=== PATIENT | female | born 1980 | race American Indian/Alaskan Native ===

== ENCOUNTER 2016-12-20 08:12 | Emergency (ER) | payer OTHER ==
[2016-12-20 09:02] LABS: Basophils % (Auto) 1.1 % (0.0-1.8); Eosinophils % (Auto) 1.9 % (0.0-4.3); Hematocrit 40.4 % (30.3-42.9); Hemoglobin 13.2 gm/dl (10.1-14.3); Mean Corpuscular HGB Conc 33 % (30-34); Mean Corpuscular Hemoglobin 29 pg (28-32); Mean Corpuscular Volume 88 fl (79-97); Platelet Count 187 K/mm3 (140-440); Red Cell Distribution Width 14.7 % (13.2-15.2); White Blood Count 8.7 K/mm3 (4.5-11.0)
[2016-12-20 09:09] LABS: INR 0.93 (0.87-1.13)
[2016-12-20 09:18] LABS: Anion Gap 18 mmol/L; BUN/Creatinine Ratio 12.85; Blood Urea Nitrogen 9 mg/dL (7-17); Calcium 9.2 mg/dL (8.4-10.2); Carbon Dioxide 26 mmol/L (22-30); Chloride 99.7 mmol/L (98-107); Glucose 129 mg/dL (65-100); Sodium 140 mmol/L (137-145)
[2016-12-20 09:52] LABS: Bacteria,Urine 2+ /HPF (Negative); Bilirubin,Urine NEG (Negative); Blood,Urine LG (Negative); Ketones,Urine NEG (Negative); Leukocyte Esterase,Urine MOD (Negative); Mucus,Urine 3+ /HPF; Nitrite,Urine NEG (Negative); Urobilinogen,Urine < 2.0 mg/dL (<2.0)
[2016-12-20 09:53] LABS: RBC,Urine > 182.0 /HPF (0.0-6.0)
[2016-12-20] MEDS ORDERED: MACROBID PO ONE (11:55)
--- NOTE | 2016-12-20 12:13 | Cat Scan Report ---
CT HEAD WITHOUT CONTRAST: 12/20/16 08:12:00 CLINICAL: Syncope and headache. TECHNIQUE: 2.5-mm noncontrast scans. COMPARISON:None FINDINGS: The ventricles and sulci are normal for age. No abnormal density. No mass or mass effect. No hemorrhage, edema or extra-axial collection. The sinuses are clear. Normal orbits and soft tissues. The calvarium and skull base are intact. IMPRESSION: Normal study.
[2016-12-20 12:18] VITALS: BP 152/94
--- NOTE | 2016-12-20 12:22 | Emergency Department Report ---
HPI - General Chief Complaint: Headache Time Seen by Provider: 12/20/16 11:45 - HPI HPI: This is a 36-year-old Afro-Portuguese female presents the emergency department by EMS from home with a few different complaints. The patient allegedly had a syncopal episode this morning witnessed by her . It is unknown how long she was unconscious but he immediately called 911. Since that time she's been having left-sided head discomfort as well as pain to the right thumb with some swelling of the hand. She did not take anything and was not given anything for her symptoms prior to presentation. She also complains of having some vaginal bleeding starting this morning. The patient has a history of a hysterectomy from early 2015 secondary to previous dysfunctional uterine bleeding. This was done at [facility] by a doctor Iban. she has a past medical history of "prediabetes", hypertension. She has a past psychiatric history of PTSD, anxiety and depression. No recent travel or sick contacts at home. ED Past Medical Hx - Past Medical History Previous Medical History?: Yes Hx Hypertension: Yes Hx Diabetes: Yes (prediabetes) Hx Psychiatric Treatment: Yes (PTSD, Anxiety, Depression) - Surgical History Past Surgical History?: Yes Additional Surgical History: hysterectomy - Social History Smoking Status: Never Smoker Substance Use Type: Non Opiate Pain, Prescribed - Medications Home Medications: Home Medications Medication Instructions Recorded Confirmed Last Taken Type HYDROcodone/APAP 5-325 [[place] 1 each PO Q6H PRN #12 tablet 12/20/16 Unknown Rx 5-325 mg TAB] Nitrofurantoin Owen/M-Cryst 100 mg PO Q12HR #14 capsule 12/20/16 Unknown Rx [Macrobid CAP] ED Review of Systems ROS: Stated complaint: LEFT HEAD PAIN Other details as noted in HPI Comment: All other systems reviewed and negative Constitutional: denies: chills, fever Eyes: denies: eye pain, eye discharge, vision change ENT: denies: ear pain, throat pain Respiratory: denies: cough, shortness of breath, wheezing Cardiovascular: edema, syncope. denies: chest pain Gastrointestinal: denies: abdominal pain, nausea, diarrhea Genitourinary: denies: urgency, dysuria, discharge Musculoskeletal: denies: back pain, joint swelling, arthralgia Skin: denies: rash, lesions Neurological: headache, paresthesias. denies: weakness, numbness Physical Exam - Physical Exam Vital Signs: Vital Signs 12/20/16 08:17 Temperature 98.7 F Pulse Rate 82 Respiratory 20 Rate Blood Pressure 133/87 O2 Sat by Pulse 97 Oximetry Physical Exam: GENERAL: The patient is well-developed well-nourished. HEENT: Normocephalic. Atraumatic. Extraocular motions are intact. Patient has moist mucous membranes. Pupils equal reactive to light bilaterally. Fatigable horizontal nystagmus. NECK: Supple. Trachea is midline. CHEST/LUNGS: Clear to auscultation. There is no respiratory distress noted. HEART/CARDIOVASCULAR: Regular. There is no tachycardia. There is no gallop rub or murmur. ABDOMEN: Abdomen is soft, nontender. Patient has normal bowel sounds. There is no abdominal distention. SKIN: There is very mild nonpitting swelling around the right thumb and proximal dorsal hand but no erythema, rash. Skin is warm and dry. NEURO: The patient is awake, alert, and oriented. The patient is cooperative. The patient has no focal neurologic deficits. The patient has normal speech. Cranial nerves II through XII grossly intact. MUSCULOSKELETAL: There is no tenderness or deformity. There is no limitation range of motion. There is no evidence of acute injury. Muscle strength 5 out of 5 upper and lower extremity bilaterally. : There is a small amount of blood seen in the vaginal vault and it is thin and fluidlike so most likely mixed with physiologic discharge. There are a few small dark circular areas to the inside of the left vaginal wall that may be residual dried blood but otherwise is nonspecific. ED Course Vital Signs 12/20/16 08:17 Temperature 98.7 F Pulse Rate 82 Respiratory 20 Rate Blood Pressure 133/87 O2 Sat by Pulse 97 Oximetry ED Medical Decision Making - Lab Data Result diagrams: 12/20/16 08:38 12/20/16 08:38 - EKG Data -: EKG Interpreted by Me EKG shows normal: sinus rhythm, axis, intervals, QRS complexes (incomplete right bundle branch block), ST-T waves Rate: normal - EKG Data When compared to previous EKG there are: previous EKG unavailable Interpretation: other (sinus rhythm, incomplete right bundle branch block) - Radiology Data Radiology results: report reviewed, image reviewed interpreted by me: X-ray of the right hand does not show any fracture, dislocation or any acute process. CT of the head does not show any acute process including no hemorrhage, mass, shift, diffuse edema or skull fracture. - Medical Decision Making 36-year-old female presents to the emergency Department with multiple complaints. The patient had a syncopal episode this morning and afterwards she began having left-sided headache and pain to the right hand and thumb. She also complains of some vaginal bleeding starting today despite the fact that she had a total hysterectomy. She was evaluated today with physical exam, labs , imaging and EKG. EKG shows a incomplete right bundle branch block but otherwise does not show any ST elevation VT or significant dysrhythmia. CT of the head does not show any bleed, shift, mass or any acute process. X-ray of the right hand does not show any fracture, dislocation or any acute process. Her labs are unremarkable including negative troponin and normal thyroid function. No signs of infection in the blood or urine, no electrolyte abnormalities and no glucose abnormalities. There are no focal, motor or sensory deficits in her cranial nerves are intact. Patient was seen ambulatory in the emergency department and appears stable. She'll be placed in a right hand and wrist thumb spica splint. There has been no further syncopal episodes or any complaints of dizziness while in the emergency department. Patient's hemoglobin was stable and on pelvic exam there was not a significant amount of bleeding. However there was a small area to the inside of the vaginal wall that showed small black spots that could be residual dried blood but I discussed with the patient's my concern that she needs to follow-up with an OB/ ASSOCIATE ART DIRECTOR as there could be some other type of condition going on such as a dermatologic condition within the vagina and she needs to rule out malignancy. However the patient is not having any vaginal or abdominal pain. She has [employer] insurance and therefore should be able to see a primary care doctor, orthopedist and INCUBATOR TENDER as needed. She will return to the ER with any worsening of her symptoms or any acute distress. Critical Care Time: No Critical care attestation.: If time is entered above; I have spent that time in minutes in the direct care of this critically ill patient, excluding procedure time. ED Disposition Clinical Impression: Abnormal vaginal bleeding, Right hand pain Syncope Qualifiers: Encounter type: initial encounter Headache Qualifiers: Headache type: unspecified Headache chronicity pattern: acute headache Intractability: not intractable Qualified Code(s): R51 - Headache UTI (urinary tract infection) Qualifiers: Urinary tract infection type: acute cystitis Hematuria presence: with hematuria Qualified Code(s): N30.01 - Acute cystitis with hematuria Disposition: TO HOME OR SELFCARE Is pt being admited?: No Condition: Stable Instructions: Syncope (ED), Hypertension (ED), Arthralgia (ED) Additional Instructions: Please follow-up with a primary care physician through [facility]. You may need to see an INCUBATOR TENDER regarding the abnormal vaginal bleeding. You may see an orthopedist regarding your right hand pain. Return to the emergency department with any worsening of her symptoms, any further passing out, or any acute distress. You've been prescribed a medication that is sedating. Therefore this medication cannot be mixed with alcohol, or taken prior to driving, working, or being responsible for children. Prescriptions: HYDROcodone/APAP 5-325 [Ragley 5-325 mg TAB] 1 each PO Q6H PRN #12 tablet PRN Reason: Pain Nitrofurantoin Owen/M-Cryst [Macrobid CAP] 100 mg PO Q12HR #14 capsule Referrals: PRIMARY CARE, [Primary Care Provider] - [facility] Time of Disposition: 14:46
[2016-12-20] MEDS ORDERED: NORCO 5/325 PO ONE (13:48)
--- NOTE | 2016-12-21 10:35 | XRay Report ---
RIGHT HAND THREE VIEWS: 12/20/16 08:12:00 CLINICAL: Right hand and thumb pain. FINDINGS: The bones and joints are normal. No fracture or dislocation. Moderate soft tissue swelling of the hand and digits. No soft tissue air or foreign body. IMPRESSION: Soft tissue swelling but otherwise normal.
== END 2016-12-20 15:11 | disposition home or self-care (01) ==
LOC: ED 08:12
DX: N93.8 Other specified abnormal uterine and vaginal bleeding (principal); R51 Headache; M79.641 Pain in right hand; N30.01 Acute cystitis with hematuria; I10 Essential (primary) hypertension; E11.9 Type 2 diabetes mellitus without complications; F32.9 Major depressive disorder, single episode, unspecified; F31.9 Bipolar disorder, unspecified; F43.10 Post-traumatic stress disorder, unspecified
CPT/HCPCS: 36415; 70450; 80048; 81001; 84443; 84484; 85025; 85610; 85730; 93005; 93010

== ENCOUNTER 2017-04-28 00:09 | Emergency (ER) | payer OTHER ==
[2017-04-28 00:58] LABS: Basophils % (Auto) 1.1 % (0.0-1.8); Eosinophils % (Auto) 1.8 % (0.0-4.3); Hematocrit 40.2 % (30.3-42.9); Hemoglobin 13.1 gm/dl (10.1-14.3); Mean Corpuscular HGB Conc 33 % (30-34); Mean Corpuscular Hemoglobin 29 pg (28-32); Mean Corpuscular Volume 88 fl (79-97); Platelet Count 214 K/mm3 (140-440); Red Blood Count 4.59 M/mm3 (3.65-5.03); Red Cell Distribution Width 14.4 % (13.2-15.2)
[2017-04-28 01:10] LABS: Anion Gap 16 mmol/L; BUN/Creatinine Ratio 17; Blood Urea Nitrogen 10 mg/dL (7-17); Calcium 9.5 mg/dL (8.4-10.2); Carbon Dioxide 29 mmol/L (22-30); Chloride 97.1 mmol/L (98-107); Glucose 182 mg/dL (65-100); Potassium 3.2 mmol/L (3.6-5.0); Sodium 139 mmol/L (137-145)
[2017-04-28] MEDS ORDERED: K-DUR PO ONE (07:53)
[2017-04-28] MEDS ORDERED: NACL 0.9% 1000 ML 1,000 ML IV ONE (08:04)
[2017-04-28] MEDS ORDERED: ZOFRAN IV ONE (08:05)
[2017-04-28] MEDS ORDERED: DILAUDID IV ONE (08:05)
--- NOTE | 2017-04-28 08:07 | Emergency Department Report ---
HPI - General Chief Complaint: Chest Pain Time Seen by Provider: 04/28/17 07:49 - HPI HPI: This is a 36 year-old female presents to the emergency department with multiple complaints. The patient says that she has been having a 24-hour history of some midsternal to left-sided chest pain with some radiation towards her back. Over the past few days as well she has also been having some nausea with vomiting and feels like she has a lump in her throat. The chest pain is more of a sharp pain and intermittent. The patient says that since he has been in the emergency department she has developed some swelling in the bilateral legs. No recent travel or sick contacts at home. She denies tobacco abuse, illicit drug use or any current alcohol abuse. She has a past medical history of diabetes, hypertension, fatty liver disease, anxiety and depression and bipolar disorder. She has medical care through [facility]. ED Past Medical Hx - Past Medical History Hx Hypertension: Yes Hx Diabetes: Yes Hx Psychiatric Treatment: Yes (PTSD, Anxiety, Depression, bipolar) - Surgical History Additional Surgical History: hysterectomy - Social History Smoking Status: Never Smoker Substance Use Type: None - Medications Home Medications: Home Medications Medication Instructions Recorded Confirmed Last Taken Type HYDROcodone/APAP 5-325 [[place] 1 each PO Q6H PRN #12 tablet 12/20/16 Unknown Rx 5-325 mg TAB] Nitrofurantoin [place]/M-Cryst 100 mg PO Q12HR #14 capsule 12/20/16 Unknown Rx [Macrobid CAP] Famotidine [Pepcid] 20 mg PO QDAY #10 tablet 04/28/17 Unknown Rx Metoclopramide [Reglan] 10 mg PO TID PRN #16 tab 04/28/17 Unknown Rx ED Review of Systems ROS: Stated complaint: CHEST PAIN Other details as noted in HPI Comment: All other systems reviewed and negative Constitutional: denies: chills, fever Eyes: denies: eye pain, eye discharge, vision change ENT: throat pain. denies: ear pain Respiratory: shortness of breath. denies: cough Cardiovascular: chest pain, edema. denies: palpitations Gastrointestinal: nausea, vomiting Genitourinary: denies: urgency, dysuria, discharge Musculoskeletal: denies: back pain, joint swelling, arthralgia Skin: denies: rash, lesions Neurological: denies: headache, weakness, paresthesias Physical Exam - Physical Exam Vital Signs: Vital Signs 04/28/17 04/28/17 00:20 00:22 Temperature 98.3 F 98.3 F Pulse Rate 111 H 112 H Respiratory 18 24 Rate Blood Pressure 160/109 160/109 O2 Sat by Pulse 99 99 Oximetry Physical Exam: GENERAL: The patient is well-developed well-nourished. HENT: Normocephalic. Atraumatic. Patient has moist mucous membranes. EYES: Extraocular motions are intact. Pupils equal reactive to light bilaterally. NECK: Supple. Trachea is midline. CHEST/LUNGS: Clear to auscultation. There is no respiratory distress noted. There is some reproducible tenderness to palpation to the left side of the chest wall. HEART/CARDIOVASCULAR: Regular. There is mild tachycardia. There is no gallop rub or murmur. ABDOMEN: Abdomen is soft, nontender. Patient has normal bowel sounds. There is no abdominal distention. Obese habitus. SKIN: Skin is warm and dry. There is no appreciable edema seen. NEURO: The patient is awake, alert, and oriented. The patient is cooperative. The patient has no focal neurologic deficits. The patient has normal speech and gait. MUSCULOSKELETAL: There is no tenderness or deformity. There is no limitation range of motion. There is no evidence of acute injury. ED Course Vital Signs 04/28/17 04/28/17 00:20 00:22 Temperature 98.3 F 98.3 F Pulse Rate 111 H 112 H Respiratory 18 24 Rate Blood Pressure 160/109 160/109 O2 Sat by Pulse 99 99 Oximetry ED Medical Decision Making - Lab Data Result diagrams: 04/28/17 00:39 04/28/17 00:39 - EKG Data -: EKG Interpreted by Al EKG shows normal: sinus rhythm, axis, intervals, QRS complexes, ST-T waves Rate: tachycardia (104 bpm) - EKG Data When compared to previous EKG there are: previous EKG unavailable Interpretation: normal EKG (with mild tachycardia) - Radiology Data Radiology results: image reviewed interpreted by me: Chest x-ray does not show any acute process. There are no pleural effusions, obvious pneumonia and there is no pneumothorax. - Medical Decision Making This is a 36-year-old female presents to the emergency department with some complaints of some nausea and vomiting, some chest discomfort and some lower extremity swelling. She also presents with elevated blood pressure. EKG does not show any signs of ST elevation [place], ischemia or dysrhythmia. Chest x-ray does not show any pneumonia, pleural effusions or any acute process. She was given nausea medication, pain medication and blood pressure medication. Labs have been unremarkable including negative troponins 3 and a negative d-dimer. She had a low BNP level. There is no signs of infection or left without abnormalities. She was reevaluated multiple times for multiple hours and is feeling improved. She appears safe for discharge home at this time. She is low on the Heart score criteria and has a low MARY score. With her [employer] insurance, she has good follow-up with primary care and any specialists necessary. She has been encouraged to follow up with a milk house worker but to return to the emergency Department with any worsening of symptoms or any acute distress. - Differential Diagnosis [place], dysrhythmia, PE, CHF, pneumonia Critical Care Time: No Critical care attestation.: If time is entered above; I have spent that time in minutes in the direct care of this critically ill patient, excluding procedure time. ED Disposition Clinical Impression: Nausea, Hypokalemia Hypertension Qualifiers: Hypertension type: essential hypertension Qualified Code(s): I10 - Essential ( primary) hypertension Chest pain Qualifiers: Chest pain type: unspecified Qualified Code(s): R07.9 - Chest pain, unspecified Disposition: DC-01 TO HOME OR SELFCARE Is pt being admited?: No Condition: Stable Instructions: Chest Pain (ED), Hypokalemia (ED), Hypertension (ED) Additional Instructions: Please follow-up with your primary care physician in the next few days. Please contact [facility] and get a referral for a milk house worker to follow-up in the next few days regarding your intermittent chest pains and for a possible outpatient stress test. Return to the emergency Department with any worsening of your symptoms or any acute distress. Try and stay away from foods that are high in salt and caffeinated products to help with your blood pressure. Keep a blood pressure log. Prescriptions: Famotidine [Pepcid] 20 mg PO QDAY #10 tablet Metoclopramide [Reglan] 10 mg PO TID PRN #16 tab PRN Reason: Nausea Referrals: LEONARDO COREAS [Other] - [facility] Time of Disposition: 12:03
[2017-04-28] MEDS ORDERED: DUONEB *Not for PRN Use IH ONE (08:49)
--- NOTE | 2017-04-28 09:07 | XRay Report ---
Single view chest: History: Chest pain. Findings: Borderline cardiomegaly. Trachea is midline. No consolidation, pneumothorax or pleural effusion. Impression: No acute cardiopulmonary findings.
[2017-04-28] MEDS ORDERED: NORMODYNE IV ONE (09:27)
[2017-04-28] MEDS ORDERED: REGLAN IV ONE (10:27)
[2017-04-28 11:41] VITALS: BP 169/97
== END 2017-04-28 12:35 | disposition home or self-care (01) ==
LOC: ED 00:09
DX: E87.6 Hypokalemia (principal); I10 Essential (primary) hypertension; R07.89 Other chest pain; E11.9 Type 2 diabetes mellitus without complications; F31.9 Bipolar disorder, unspecified; F43.10 Post-traumatic stress disorder, unspecified; Z90.710 Acquired absence of both cervix and uterus
CPT/HCPCS: 36415; 71010; 80048; 82962; 83880; 84484; 84703; 85025; 85379; 93005; 93010; 94640; 96361; 96374; 96375; 99284; J1170; J2405; J2765; J7030